=== PATIENT | female | born 1940 | race Caucasian/White ===

== ENCOUNTER 2021-04-03 13:08 | Emergency (ER) | payer MEDICARE ==
[~2021-04-03] VITALS: Ht 160 cm; Wt 66.0 kg
[~2021-04-03 13:08] MED LIST: ACET650T11 PO; ATOR10TA87 PO; AZEL137S4 BOTHNARES; CHOL500044 PO; CLAR250T39 PO; FLUC150T5 PO; FLUT16SP26 NS; GABA-532 PO; LOSA50TA3 PO; MAGN400C PO; METR-159 PO; MULT-1179 PO; SERT25TA PO
--- NOTE | 2021-04-03 13:20 | NUR ---
Dr Barclay aware of trauma level 2
[2021-04-03] MEDS ORDERED: LIDOcaine 1% W/epiNEPHrine 1:200,000 10ml vial IJ ONE (13:40)
[2021-04-03] MEDS ORDERED: TETanus/Pertussis (Acell)/Diphther VAC/PF (Tdap-Adult) 0.5ml syringe IMVAC ONE (13:40)
[2021-04-03] MEDS ORDERED: acetaminophen 325mg tablet PO ONE (13:40)
[2021-04-03 16:00] VITALS: BP 151/96
== END 2021-04-03 16:04 | disposition home or self-care (01) ==
LOC: ER 13:09
DX: S01.311A Laceration without foreign body of right ear, initial encounter (principal); S09.90XA Unspecified injury of head, initial encounter; I48.91 Unspecified atrial fibrillation; E78.00 Pure hypercholesterolemia, unspecified; I10 Essential (primary) hypertension; K21.9 Gastro-esophageal reflux disease without esophagitis; Z95.0 Presence of cardiac pacemaker; Z98.890 Other specified postprocedural states; Z79.899 Other long term (current) drug therapy; Z88.0 Allergy status to penicillin; Z88.8 Allergy status to other drugs, medicaments and biological substances; Z79.01 Long term (current) use of anticoagulants; W22.8XXA Striking against or struck by other objects, initial encounter; Y93.89 Activity, other specified; Y92.89 Other specified places as the place of occurrence of the external cause; Y99.8 Other external cause status
CPT/HCPCS: 12013; 70450; 72125; 90471; 90715; 99285

== ENCOUNTER 2021-04-10 11:47 | Emergency (ER) | payer MEDICARE ==
[~2021-04-10] VITALS: Ht 160 cm; Wt 66.0 kg
[2021-04-10 12:03] VITALS: BP 148/78
== END 2021-04-10 12:39 | disposition home or self-care (01) ==
LOC: ER 11:47
DX: S01.311D Laceration without foreign body of right ear, subsequent encounter (principal); Z48.02 Encounter for removal of sutures; I48.91 Unspecified atrial fibrillation; E78.00 Pure hypercholesterolemia, unspecified; I10 Essential (primary) hypertension; K21.9 Gastro-esophageal reflux disease without esophagitis; Z95.0 Presence of cardiac pacemaker; Z79.899 Other long term (current) drug therapy; X58.XXXD Exposure to other specified factors, subsequent encounter
CPT/HCPCS: 99281

== ENCOUNTER 2021-06-14 21:51 | Emergency (ER) | payer MEDICARE ==
[~2021-06-14] VITALS: Ht 160 cm; Wt 67.0 kg
[2021-06-14 21:57] VITALS: BP 147/74
[2021-06-14] MEDS ORDERED: CLIN-97 PO (22:44)
[2021-06-14] MEDS ORDERED: clindamycin 150mg capsule PO ONE (22:45)
[2021-06-14] MEDS ORDERED: diphenhydrAMINE 25mg capsule PO ONE (22:45)
== END 2021-06-14 22:54 | disposition home or self-care (01) ==
LOC: ER 21:51
DX: L03.113 Cellulitis of right upper limb (principal); I48.91 Unspecified atrial fibrillation; E78.00 Pure hypercholesterolemia, unspecified; I10 Essential (primary) hypertension; K21.9 Gastro-esophageal reflux disease without esophagitis; Z95.0 Presence of cardiac pacemaker; Z98.890 Other specified postprocedural states; Z88.0 Allergy status to penicillin; Z88.8 Allergy status to other drugs, medicaments and biological substances; Z79.899 Other long term (current) drug therapy
CPT/HCPCS: 99283; Q0163

== ENCOUNTER 2022-06-27 08:27 | Emergency (ER) | payer MEDICARE ==
[~2022-06-27] VITALS: Ht 160 cm; Wt 65.9 kg
[~2022-06-27 08:27] MED LIST changes: +CLIN-97 PO; +FLUC150T46 PO; -FLUC150T5 PO
[2022-06-27 08:31] VITALS: BP 189/96
== END 2022-06-27 13:19 | disposition home or self-care (01) ==
LOC: ER 08:28
DX: R04.0 Epistaxis (principal); I48.91 Unspecified atrial fibrillation; E78.00 Pure hypercholesterolemia, unspecified; I10 Essential (primary) hypertension; K21.9 Gastro-esophageal reflux disease without esophagitis; R31.9 Hematuria, unspecified; Z95.0 Presence of cardiac pacemaker; Z98.890 Other specified postprocedural states; Z88.8 Allergy status to other drugs, medicaments and biological substances; Z88.0 Allergy status to penicillin; Z79.2 Long term (current) use of antibiotics; Z79.899 Other long term (current) drug therapy
CPT/HCPCS: 30901; 99284

== ENCOUNTER 2023-11-07 15:20 | Emergency (ER) | payer MEDICARE ==
[~2023-11-07] VITALS: Ht 162.6 cm; Wt 70.5 kg
[~2023-11-07 15:20] MED LIST changes: +LOSA-416 PO; -LOSA50TA3 PO
[2023-11-07] MEDS: acetaminophen 325mg tablet PO STA (15:47)
[2023-11-07] MEDS: normal saline 1000ML IV soln IV ONE (15:50)
[2023-11-07] MEDS: vancomycin/NS 1 GM ADD-VANTAGE 250 ML X 1 DOSE IV ONE (16:10)
[2023-11-07 17:03] LABS: BASOPHILS % (AUTO) 0.2 % (0-1); EOSINOPHILS # (AUTO) 0.1 X10'3 (0-0.9); EOSINOPHILS % (AUTO) 1.2 % (0-6); HEMATOCRIT 42.2 % (35.0-45.0); HEMOGLOBIN 14.1 g/dl (12.0-16.0); LYMPHOCYTES # (AUTO) 0.6 X10'3 (1.1-4.8); MEAN CORPUSCULAR HEMOGLOBIN 33.5 PG (27.0-31.0); MEAN CORPUSCULAR HGB CONC 33.5 g/dL (33.0-36.5); MEAN CORPUSCULAR VOLUME 100.2 FL (78-98); MEAN PLATELET VOLUME 7.9 FL (7.4-10.4); MONOCYTES # (AUTO) 0.4 X10'3 (0-0.9); MONOCYTES % (AUTO) 4.8 % (2-12); NEUTROPHILS # (AUTO) 8.2 X10'3 (1.8-7.7); NEUTROPHILS % (AUTO) 87.8 % (42-75); PLATELET COUNT 230 X10'3 (140-440); RED BLOOD COUNT 4.21 X10'6 (4.20-5.60); RED CELL DISTRIBUTION WIDTH 13.4 % (11.5-14.5); WHITE BLOOD COUNT 9.4 X10'3 (4.5-11.0)
[2023-11-07 17:25] LABS: MAGNESIUM 1.7 MG/DL (1.5-2.4)
[2023-11-07] MEDS: CefTRIAXone 2gm/D5W 50ml BAG 50 ML IV ONE (17:25)
[2023-11-07 17:33] LABS: BILIRUBIN,URINE NEGATIVE (Neg); CLARITY,URINE SLIGHTLY CLOUDY (Clear); COLOR,URINE YELLOW (Yellow); GLUCOSE, URINE NEGATIVE (Neg); KETONES,URINE NEGATIVE (Neg); LEUKOCYTE ESTERASE ,URINE NEGATIVE (Neg); NITRITES, URINE NEGATIVE (Neg); OCCULT BLOOD,URINE NEGATIVE (Neg); PH,URINE 7.5 (4.8-8.0); PROTEIN,URINE NEGATIVE (Neg); UROBILINOGEN,URINE 0.2 E.U/dL (0.2-1.0)
[2023-11-07 17:38] LABS: UA COLLECTION TYPE CLN CATCH MIDSTREAM
[2023-11-07 17:39] LABS: BACTERIA,URINE FEW /HPF (Neg); MUCUS STRANDS FEW /LPF (Neg); RBC,URINE 0-2 /HPF (0-2); SQUAMOUS EPITHELIAL CELL,UR FEW /LPF (FEW); WBC,URINE 0-4 /HPF (0-4)
[2023-11-07] MEDS: azithromycin/NS 500mg/250ml 250 ML IV SCH (18:06)
[2023-11-07 18:53] VITALS: BP 113/63; PULSE 77; RESP 20; TEMP 98.2; O2SAT 96
[2023-11-09] MEDS ORDERED: LOSA50TA64 PO (21:36)
[2023-11-09] MEDS ORDERED: METO-384 PO (21:36)
[2023-11-09] MEDS ORDERED: AMLO5TAB16 PO (21:36)
[2023-11-09] MEDS ORDERED: SERT-433 PO (21:36)
[2023-11-09] MEDS ORDERED: PANT40TA54 PO (21:36)
[2023-11-09] MEDS ORDERED: RIVA20TA PO (21:36)
[2023-11-09] MEDS ORDERED: TOPI-95 PO (21:36)
[2023-11-09] MEDS ORDERED: ALEN35TA53 PO (21:36)
== END 2023-11-07 18:57 | disposition home or self-care (01) ==
LOC: ER 15:21
DX: B34.9 Viral infection, unspecified (principal); Z20.822 Contact with and (suspected) exposure to COVID-19
CPT/HCPCS: 36415; 71045; 81001; 83605; 83735; 84145; 84484; 85025; 87040; 87502; 87503; 87811; 93005; 96361; 96365; 99285; J0696; J7030

== ENCOUNTER 2024-11-19 08:14 | Day surgery (SDC) | payer MEDICARE ==
[2024-11-15 13:50] LABS: BASOPHILS % (AUTO) 0.2 % (0-1); EOSINOPHILS # (AUTO) 0.1 X10'3 (0-0.9); EOSINOPHILS % (AUTO) 1.9 % (0-6); HEMATOCRIT 42.3 % (35.0-45.0); HEMOGLOBIN 13.9 g/dl (12.0-16.0); LYMPHOCYTES # (AUTO) 1.6 X10'3 (1.1-4.8); LYMPHOCYTES % (AUTO) 23.9 % (21-51); MEAN CORPUSCULAR HEMOGLOBIN 31.3 PG (27.0-31.0); MEAN CORPUSCULAR HGB CONC 32.8 g/dL (33.0-36.5); MEAN CORPUSCULAR VOLUME 95.6 FL (78-98); MEAN PLATELET VOLUME 7.5 FL (7.4-10.4); MONOCYTES # (AUTO) 0.4 X10'3 (0-0.9); MONOCYTES % (AUTO) 6.7 % (2-12); NEUTROPHILS # (AUTO) 4.4 X10'3 (1.8-7.7); NEUTROPHILS % (AUTO) 67.3 % (42-75); PLATELET COUNT 298 X10'3 (140-440); RED BLOOD COUNT 4.43 X10'6 (4.20-5.60); RED CELL DISTRIBUTION WIDTH 16.3 % (11.5-14.5); WHITE BLOOD COUNT 6.5 X10'3 (4.5-11.0)
[2024-11-15 14:02] LABS: APTT 37 SECONDS (22-32); INR 1.4 INR; PROTHROMBIN TIME 14.7 SECONDS (9.0-12.0)
[2024-11-15 14:08] LABS: ALBUMIN 3.1 G/DL (3.4-5.0); ANION GAP 7 (8-16); BLOOD UREA NITROGEN 24 MG/DL (7-18); BUN/CREATININE RATIO 18.8 (10.0-20.0); CALCIUM 8.7 MG/DL (8.5-10.1); CHLORIDE 109 MMOL/L (99-107); CHOL/HDL RATIO 2.1 (0.00-4.99); CHOLESTEROL 155 MG/DL (0-200); CREATININE 1.28 MG/DL (0.40-0.90); GLUCOSE 119 MG/DL (70-104); HDL CHOLESTEROL 74 MG/DL (35-60); LDL CHOLESTEROL 60 MG/DL (50-100); POTASSIUM 3.6 MMOL/L (3.5-5.1); SODIUM 144 MMOL/L (135-145); TOTAL CARBON DIOXIDE 28.5 MMOL/L (24-32); TRIGLYCERIDES 76 MG/DL (20-135); eGFR 40 ML/MIN
[2024-11-19] VITALS (10 sets, daily range): BP systolic 109–140; BP diastolic 68–84; PULSE 60–93; RESP 14–18; TEMP 98.3; O2SAT 95–99
[~2024-11-19] VITALS: Ht 160 cm; Wt 70.5 kg
[~2024-11-19 08:14] MED LIST changes: +ALEN35TA53 PO; +AMLO5TAB16 PO; -ATOR10TA87 PO; +ATOR20TA66 PO; -CLAR250T39 PO; -CLIN-97 PO; -FLUC150T46 PO; -FLUT16SP26 NS; -GABA-532 PO; -LOSA-416 PO; +LOSA50TA64 PO; +METO-384 PO; -METR-159 PO; +PANT40TA54 PO; +RIVA20TA PO; +SERT-433 PO; -SERT25TA PO; +TOPI-95 PO
[2024-11-19] MEDS ORDERED: AMI200T PO (08:43)
[2024-11-19] MEDS ORDERED: PREG75CA76 PO (08:43)
[2024-11-19] MEDS ORDERED: SACU1TAB PO (08:43)
[2024-11-19] MEDS ORDERED: POTA-366 PO (08:43)
[2024-11-19] MEDS ORDERED: FURO40TA4 PO (08:43)
[2024-11-19] MEDS ORDERED: DULO20CA18 PO (08:44)
[2024-11-19] MEDS: normal saline 1000ml 1,000 ML IV SCH (09:22)
[2024-11-19] MEDS: MIDAZolam 1mg/ml 10ml vial IV ONE (09:22)
[2024-11-19] MEDS: fentaNYL/PF 50MCG/1 ML 2ML syringe IV ONE (09:22)
== END 2024-11-19 10:45 | disposition home or self-care (01) ==
LOC: SSTAY O 08:14
PROVIDERS: ATTEND Student in an Organized Health Care Education/Training Program
DX: I48.0 Paroxysmal atrial fibrillation (principal); Z88.8 Allergy status to other drugs, medicaments and biological substances; I11.0 Hypertensive heart disease with heart failure; I50.9 Heart failure, unspecified; Z95.0 Presence of cardiac pacemaker; Z79.899 Other long term (current) drug therapy; Z98.890 Other specified postprocedural states; Z88.6 Allergy status to analgesic agent
CPT/HCPCS: 36415; 80048; 80061; 85025; 85610; 85730; 92960; 93005; J2250; J3010; J7030

== ENCOUNTER 2025-02-27 12:29 | Emergency (ER) | payer MEDICARE ==
[~2025-02-27] VITALS: Ht 160 cm; Wt 68.2 kg
[~2025-02-27 12:29] MED LIST changes: +AMI200T PO; -AMLO5TAB16 PO; -AZEL137S4 BOTHNARES; +DULO20CA18 PO; +FURO40TA4 PO; -LOSA50TA64 PO; +POTA-366 PO; +PREG75CA76 PO; +SACU1TAB PO; -SERT-433 PO
--- NOTE | 2025-02-27 12:46 | ELECTROCARDIOGRAPH REPORT ---
[facility] Test Date: 2025-02-27 Test Time: 12:41:57 Pat Name: VIVEK MACDONALD Department: EMERGENCY ROOM Room: Gender: F Customer Liaison: BRIAN : 1940 Requested By: INOCENTE ROBIN Order Number: [id number] Reading MD: Measurements Intervals [place] Rate: 60 P: 0 SD: 178 QRS: 62 QRSD: 96 T: 29 QT: 436 QTc: 436 Interpretive Statements Atrial-paced rhythm Borderline repolarization abnormality Please click the below link to view image of tracing.
[2025-02-27 12:49] LABS: BASOPHILS % (AUTO) 0.3 % (0-1); EOSINOPHILS # (AUTO) 0.1 X10'3 (0-0.9); EOSINOPHILS % (AUTO) 1.9 % (0-6); HEMATOCRIT 39.9 % (35.0-45.0); HEMOGLOBIN 13.3 g/dl (12.0-16.0); LYMPHOCYTES # (AUTO) 1.2 X10'3 (1.1-4.8); LYMPHOCYTES % (AUTO) 16.4 % (21-51); MEAN CORPUSCULAR HEMOGLOBIN 33.2 PG (27.0-31.0); MEAN CORPUSCULAR HGB CONC 33.4 g/dL (33.0-36.5); MEAN CORPUSCULAR VOLUME 99.3 FL (78-98); MEAN PLATELET VOLUME 6.7 FL (7.4-10.4); MONOCYTES # (AUTO) 0.6 X10'3 (0-0.9); MONOCYTES % (AUTO) 7.7 % (2-12); NEUTROPHILS # (AUTO) 5.4 X10'3 (1.8-7.7); NEUTROPHILS % (AUTO) 73.7 % (42-75); PLATELET COUNT 299 X10'3 (140-440); RED BLOOD COUNT 4.02 X10'6 (4.20-5.60); RED CELL DISTRIBUTION WIDTH 17.5 % (11.5-14.5); WHITE BLOOD COUNT 7.3 X10'3 (4.5-11.0)
[2025-02-27 13:03] LABS: INR 1.3 INR
[2025-02-27 13:07] LABS: APTT 34 SECONDS (22-32)
[2025-02-27 13:16] LABS: ALANINE AMINOTRANSFERASE 34 U/L (12-78); ALBUMIN 3.1 G/DL (3.4-5.0); ALBUMIN/GLOBULIN RATIO 1.1 (1.1-1.5); ALKALINE PHOSPHATASE 105 IU/L (46-116); ANION GAP 8 (8-16); ASPARTATE AMINO TRANSFERASE 25 U/L (10-37); BILIRUBIN,TOTAL 0.4 MG/DL (0.1-1.0); BLOOD UREA NITROGEN 32 MG/DL (7-18); BUN/CREATININE RATIO 32.7 (10.0-20.0); CALCIUM 8.9 MG/DL (8.5-10.1); CHLORIDE 113 MMOL/L (99-107); CREATININE 0.98 MG/DL (0.40-0.90); GLUCOSE 108 MG/DL (70-104); POTASSIUM 3.9 MMOL/L (3.5-5.1); SODIUM 145 MMOL/L (135-145); TOTAL CARBON DIOXIDE 23.8 MMOL/L (24-32); eCRCL 35 ML/MIN; eGFR 54 ML/MIN
[2025-02-27 13:25] LABS: PRO BRAIN NATRIURETIC PEPTIDE 482 PG/ML (0-450)
--- NOTE | 2025-02-27 13:44 | Physician Documentation ---
History of Present Illness ~ Chief Complaint: Mechanical Fall Stated Complaint: FALL HIT HEAD ON THINNERS Time Seen by MD: 13:36 Primary Medical Doctor: LYRIC Mode of Arrival: Dropped Off HPI 85-year-old female who presents to the emergency department with daughter, patient is [place]-speaking, she fell last night and hit her head, she does take blood thinners, she has had two falls this week, she has a history of chronic back pain, she notes that she had a small contusion to the occipital area of her scalp last night also has some discomfort of her back that was relieved with arthritis pain medication today. Occurred: yesterday Injury/Pain Location: head, neck, back Context: unknown Loss Of Consciousness: no loss of consciousness Associated Symptoms: headache Pain Severity: none Modifying Factors: improves with: pain medication Tetanus within 5 Years?: No Prehospital Care: medication Medication Reconciliation Allergies: Coded Allergies: hydromorphone (Verified Allergy, Intermediate, N&V & RASH, 11/09/23) Penicillins (Unverified Allergy, Unknown, 11/07/23) hydrocodone (Verified Allergy, Unknown, 11/07/23) Scheduled Acetaminophen (Acetaminophen), 650 MG PO BID, (Reported) Alendronate Sodium (Alendronate Sodium), 1 TAB PO Q7D, (Reported) Amiodarone Hcl (Cordarone), 1 TAB PO DAILY, (Reported) Atorvastatin Calcium (Atorvastatin Calcium), 1 TAB PO DAILY, (Reported) Cholecalciferol (Vitamin D3) (Vitamin D), 1 TAB PO DAILY, (Reported) Duloxetine HCl (Duloxetine HCl), 1 CAP PO DAILY, (Reported) Furosemide (Furosemide), 1 TAB PO DAILY, (Reported) Magnesium Oxide (Magnesium), 1 CAP PO DAILY, (Reported) Metoprolol Succinate (Metoprolol Succinate), 1 TAB PO DAILY, (Reported) Multivitamins,Therapeutic* (Theragran-M*), 1 EACH PO DAILY, (Reported) Pantoprazole Sodium (Pantoprazole Sodium), 1 TAB PO BID, (Reported) Potassium Chloride (Potassium Chloride), 1 TAB PO DAILY, (Reported) Pregabalin (Pregabalin), 1 CAP PO BID, (Reported) Rivaroxaban (Xarelto), 1 TAB PO DAILY, (Reported) Sacubitril/Valsartan (Entresto 24 mg-26 mg Tablet), 1 TAB PO BID, (Reported) Topiramate (Topiramate), 1 TAB PO DAILY, (Reported) Past Medical History Past Medical History: Arrhythmia, Atrial Fibrillation, High Cholesterol, Hyp ertension, GERD, Hematuria, Hernia Past Surgical History: pacemaker, other Other Past Surgical History: hernia repair, lumpectomy left Patient History: Patient reports no known family medical history. Alcohol Use: None Drug Use: none Lives with: Family Lives In: Home Occupation: retired Review of Systems All Other Systems at this time: Reviewed and Negative Constitutional: Reports: see HPI Eyes: Reports: no symptoms reported ENT: Reports: no symptoms reported Respiratory: Reports: no symptoms reported Musculoskeletal: Reports: pain Physical Exam Vital Signs: Temperature: 98.9, Source: Oral, Heart Rate: 60, Respiratory Rate: 16, BP: 167/93, Pulse Oximetry: 98, Weight: 68.250 Oxygen Flow Rate: 0 Pulse Oximetry Reflects: adequate oxygenation General Appearance: alert, no apparent distress Head: swelling, tenderness; No: active bleeding, Cotter's Sign, contusions, lacerations, raccoon eyes Face: normal Eye Lid: normal inspection Ears: normal inspection Mouth: normal inspection Neck: full range of motion, tenderness; No: muscle spasm, painful range of motion, tender lateral, tender midline Progress Results/Orders Results/Orders Vital Signs 02/27/25 02/27/25 02/27/25 02/27/25 12:33 12:50 12:53 13:48 Temp 98.9 98.9 98.9 Pulse 60 60 60 Resp 18 18 16 14 B/P (MAP) 184/84 167/93 (117) 157/87 (110) Pulse Ox 97 98 98 O2 Flow Rate 0 0 0 Laboratory Tests Test 02/27/25 12:41 02/27/25 14:18 White Blood Count 7.3 Red Blood Count 4.02 L Hemoglobin 13.3 Hematocrit 39.9 Mean Corpuscular Volume 99.3 H Mean Corpuscular Hemoglobin 33.2 H Mean Corpuscular Hemoglobin Concent 33.4 Red Cell Distribution Width 17.5 H Platelet Count 299 Mean Platelet Volume 6.7 L Neutrophils (%) (Auto) 73.7 Lymphocytes (%) (Auto) 16.4 L Monocytes (%) (Auto) 7.7 Eosinophils (%) (Auto) 1.9 Basophils (%) (Auto) 0.3 Neutrophils # (Auto) 5.4 Lymphocytes # (Auto) 1.2 Monocytes # (Auto) 0.6 Eosinophils # (Auto) 0.1 Basophils # (Auto) 0.0 CBC Comment Prothrombin Time 13.0 H INR International Normalized Ratio 1.3 Activated Partial Thromboplast Time 34 H Coagulation Comments Sodium Level 145 Potassium Level 3.9 Chloride Level 113 H Carbon Dioxide Level 23.8 L Anion Gap 8 Blood Urea Nitrogen 32 H Creatinine 0.98 H Estimated GFR/1.73 m2 54 BUN/Creatinine Ratio 32.7 H Glucose Level 108 H Calcium Level 8.9 Total Bilirubin 0.4 Aspartate Amino Transf (AST/SGOT) 25 Alanine Aminotransferase (ALT/SGPT) 34 Alkaline Phosphatase 105 Troponin I High Sensitivity 12 10 Pro-B-Type Natriuretic Peptide 482 H Total Protein 6.0 L Albumin 3.1 L Globulin 2.9 Albumin/Globulin Ratio 1.1 Chemistry Comments Troponin I High Sens Percent Delta 16 Troponin I Hi Sens Absolute Change -2 EKG/XRAY/CT/US/VASC/MRI CT : [facility] [address] [place] [id number] CAT SCAN Patient: VIVEK MACDONALD Medical Record: [id number] [facility] 1940, Age: 85 Sex: Female Location: ER Patient Status: REG ER Service Date/Time: 02/27/251235 Ordering Physician: INOCENTE ROBIN Exam: CT HEAD Procedure: [facility] Study Date and Requested Time: 02/27/2025 01:03 PM History: FALL WITH HEADSTRIKE ON BLOOD THINNER Comparison: CT HEAD on DOS: 04/03/21 Dose: CTDI: 49.73 mGy DLP: 839.3 mGycm Technique: Multiplanar images obtained through the brain without intravenous contrast. Findings: Mild diffuse brain atrophy Mild chronic small vessel ischemic changes. 4 x 4 x 6 mm calcification within the right basal ganglia. No hemorrhages, masses, mass effect, midline shift, herniation or cytotoxic edema following a large vascular territory. No intra-axial or extra-axial fluid collections. No evidence of hydrocephalus. The basal cisterns are patent. The pituitary gland, sella and parasellar regions are unremarkable. 7 mm hypodense focus over the right cerebellum which may represent lacunar infarct of unknown chronicity. cerebellar tonsils are in normal position. The cerebellum is unremarkable. The orbits and globes are unremarkable. Bubbly secretion within the left sphenoid sinus. Otherwise, paranasal sinuses and mastoids are clear. There are no worrisome calvarial lesions. Impression: No evidence of acute intracranial hemorrhage. 7 mm hypodensity over the right cerebellum which may represent lacunar infarct of unknown chronicity with no prior imaging for comparison. MRI would be helpf ul for further evaluation. Electronically Signed by:KAMRYN GRAY DO Date & Time: 02/27/25 1436 Dictated by: KAMRYN GRAY DO Dictation date and time: 02/27/25 1245 Primary Care Provider: NO PRIMARY CARE PROVIDER cc: INOCENTE ROBIN ~ [address] [address] CAT SCAN Patient: VIVEK MACDONALD Medical Record: [id number] [facility] 1940, Age: 85 Sex: Female Location: ER Patient Status: [facility] ER Service Date/Time: 02/27/25/ 1236 Ordering Physician: INOCENTE ROBIN Exam: CT CERVICAL SPINE EXAM: CT CT CERVICAL SPINE INDICATION: FALL WITH HEADSTRIKE ON BLOOD THINNER EXAM DATE: 02/27/2025 01:05 PM COMPARISON: CT CERVICAL SPINE on DOS: 04/03/21 TECHNIQUE: Noncontrast axial CT images of the cervical spine were performed. Sagittal and coronal reformatted images were obtained. Radiation optimization: All CT scans at this facility use at least one of these dose optimization techniques: automated exposure control mA and/or kV adjustment per patient size (includes targeted exams where dose is matched to clinical indication) or iterative reconstruction. Radiation Dose Information: CT Dose: CTDI volume is 22.84 mGy. Dose-length product is 471.03 mGy*cm FINDINGS: No fracture or listhesis of the cervical spine. There is advanced cervical degenerative disc disease and facet arthropathy. There is [id number] spinal canal stenosis at every disc level C4-C7. There is significant neural foraminal stenosis at C3-C4 bilaterally, C4-C5 bilaterally, C5-C6 bilaterally, C6-C7 bilaterally. There is interstitial prominence in the lung apices. There is a partially visualized left chest pacemaker. There are atherosclerotic calcifications of the carotid bulbs. There is nodularity of the right lobe of the thyroid. IMPRESSION: 1. No fracture of the cervical spine. 2. Advanced cervical degenerative disc disease and facet arthropathy with multilevel significant neural foraminal stenosis as detailed above; mild-to-m oderate spinal canal stenosis at every disc level C4-C7. The patient is likely not compatible for follow-up MRI of the cervical spine secondary to left chest pacemaker. 3. Interstitial prominence in the lung apices may be due to scarring, CHF, and/or reactive airways disease. 4. Right thyroid nodularity. Recommend follow-up outpatient thyroid ultrasound for better characterization. Electronically Signed by:RADHA CHUA MD Date & Time: 02/27/25 1442 Dictated by: RADHA CHUA MD Dictation date and time: 02/27/25 1245 Primary Care Provider: NO PRIMARY CARE PROVIDER cc: INOCENTE ROBIN ~ Medical Decision Making Differential Dx:Considerations: Include: Closed head injury, Fracture(s), Intraabdominal injury, Spine injury, Contusion(s), Laceration(s), Encephalopathy Departure Disposition: 01 HOME / SELF CARE / HOMELESS Impression: Primary Impression: Fall Additional Impressions: Neck pain Contusion Additional Impression Text Please use your walker at home to reduce your risk of falls. Return to the ER for any worsening pain or injury that was not addressed on today's visit. Condition: Stable Discharge Instructions: Fall Prevention in the Home, Adult, [id number], Contusion Referrals: NO PRIMARY CARE PROVIDER (PCP) Education Educated: Patient, Family Educated regarding: diagnosis, treatment Signature Scribe Signature: None Attestation: Dictated by myself RAFA ACOSTA DO Feb 27, 2025 13:44
[2025-02-27 13:48] VITALS: TEMP 98.9
--- NOTE | 2025-02-27 14:38 | RADIOLOGY REPORT ---
Procedure: [facility] Study Date and Requested Time: 02/27/2025 01:03 PM History: FALL WITH HEADSTRIKE ON BLOOD THINNER Comparison: CT HEAD on DOS: 04/03/21 Dose: CTDI: 49.73 mGy DLP: 839.3 mGycm Technique: Multiplanar images obtained through the brain without intravenous contrast. Findings: Mild diffuse brain atrophy Mild chronic small vessel ischemic changes. 4 x 4 x 6 mm calcification wit hin the right basal ganglia. No hemorrhages, masses, mass effect, midline shift, herniation or cytotoxic edema following a large v ascular territory. No intra-axial or extra-axial fluid collections. No evidence of hydrocephalus. The basal cisterns are patent. The pituitary gland, sella and parasellar regions are unremarkable. 7 mm hypodense focus over the rig ht cerebellum which may represent lacunar infarct of unknown chronicity. cerebellar tonsils are in no rmal position. The cerebellum is unremarkable. The orbits and globes are unremarkable. Bubbly secretion within the left sphenoid sinus. Otherwise, paranasal sinuses and mastoids are clear. There are no worrisome calvarial lesions. Impression: No evidence of acute intracranial hemorrhage. 7 mm hypodensity over the right cerebellum which may represent lacunar infarct of unknown chronicity with no prior imaging for comparison. MRI would be helpful for further evaluation.
--- NOTE | 2025-02-27 14:44 | RADIOLOGY REPORT ---
EXAM: CT CT CERVICAL SPINE INDICATION: FALL WITH HEADSTRIKE ON BLOOD THINNER EXAM DATE: 02/27/2025 01:05 PM COMPARISON: CT CERVICAL SPINE on DOS: 04/03/21 TECHNIQUE: Noncontrast axial CT images of the cervical spine were performed. Sagittal and coronal ref ormatted images were obtained. Radiation optimization: All CT scans at this facility use at least one of these dose optimization techniques: automated exposure control mA and/or kV adjustment per patie nt size (includes targeted exams where dose is matched to clinical indication) or iterative reconstr uction. Radiation Dose Information: CT Dose: CTDI volume is 22.84 mGy. Dose-length product is 471.03 mGy*cm FINDINGS: No fracture or listhesis of the cervical spine. There is advanced cervical degenerative disc disease and facet arthropathy. There is atol-in-leftrhie spinal canal stenosis at every disc level C4-C7. The re is significant neural foraminal stenosis at C3-C4 bilaterally, C4-C5 bilaterally, C5-C6 bilaterall y, C6-C7 bilaterally. There is interstitial prominence in the lung apices. There is a partially visua lized left chest pacemaker. There are atherosclerotic calcifications of the carotid bulbs. There is n odularity of the right lobe of the thyroid. IMPRESSION: 1. No fracture of the cervical spine. 2. Advanced cervical degenerative disc disease and facet arthropathy with multilevel significant neur al foraminal stenosis as detailed above; pbxe-go-jcohuthv spinal canal stenosis at every disc level C 4-C7. The patient is likely not compatible for follow-up MRI of the cervical spine secondary to left chest pacemaker. 3. Interstitial prominence in the lung apices may be due to scarring, CHF, and/or reactive airways di sease. 4. Right thyroid nodularity. Recommend follow-up outpatient thyroid ultrasound for better characteriz ation.
[2025-02-27 16:06] VITALS: BP 164/86; PULSE 74; RESP 19; O2SAT 95
== END 2025-02-27 16:09 | disposition home or self-care (01) ==
LOC: ER 12:30
DX: S00.03XA Contusion of scalp, initial encounter (principal); M54.2 Cervicalgia; E78.00 Pure hypercholesterolemia, unspecified; I10 Essential (primary) hypertension; K21.9 Gastro-esophageal reflux disease without esophagitis; I48.91 Unspecified atrial fibrillation; R06.02 Shortness of breath; Z88.0 Allergy status to penicillin; Z88.5 Allergy status to narcotic agent; Z88.8 Allergy status to other drugs, medicaments and biological substances; Z95.0 Presence of cardiac pacemaker; Z98.890 Other specified postprocedural states; W19.XXXA Unspecified fall, initial encounter; Y93.89 Activity, other specified; Y92.89 Other specified places as the place of occurrence of the external cause; Y99.8 Other external cause status
CPT/HCPCS: 36415; 70450; 72125; 80053; 83880; 84484; 85025; 85610; 85730; 93005; 99284